=== PATIENT | female | born 1990 | race Caucasian/White ===

== ENCOUNTER 2020-12-21 16:14 | Emergency (ER) | payer OTHER ==
[~2020-12-21] VITALS: Ht 165.1 cm; Wt 77.1 kg
[~2020-12-21 16:14] MED LIST: MEDR150I; SULTRIDS PO
[2020-12-21] MEDS ORDERED: MIRALAX17 G3 PO (21:14)
[2020-12-21] MEDS ORDERED: Macrobid 100 M100 MG PO (21:14)
== END 2020-12-21 21:41 | disposition home or self-care (01) ==
LOC: ER 16:14
DX: K59.00 Constipation, unspecified (principal); R30.0 Dysuria; Z88.0 Allergy status to penicillin; Z88.5 Allergy status to narcotic agent
CPT/HCPCS: 74018; 99283-25; A9270

== ENCOUNTER 2022-05-14 01:36 | Emergency (ER) | payer OTHER ==
[~2022-05-14] VITALS: Ht 165.1 cm; Wt 77.1 kg
[~2022-05-14 01:36] MED LIST changes: +MIRALAX17 G3 PO; +Macrobid 100 M100 MG PO
[2022-05-14] MEDS ORDERED: NARCAN4 M1 (04:59)
== END 2022-05-14 05:17 | disposition home or self-care (01) ==
LOC: ER 01:36
DX: T40.411A Poisoning by fentanyl or fentanyl analogs, accidental (unintentional), initial encounter (principal); F17.210 Nicotine dependence, cigarettes, uncomplicated; Z88.0 Allergy status to penicillin; Z88.5 Allergy status to narcotic agent
CPT/HCPCS: 99284

== ENCOUNTER → 2022-07-28 | Outpatient (CLI) | payer OTHER ==
[~2022-07-28] MED LIST changes: +NARCAN4 M1
[2022-07-31 11:00] LABS: CHLAMYDIA BY NAA Negative (Negative); GONOCOCCUS BY NAA Negative (Negative); TRICH VAG BY NAA Negative (Negative)
== END | disposition home or self-care (01) ==
LOC: LAB SHORT 17:30 → LAB 17:30
PROVIDERS: Internal Medicine
DX: Z11.59 Encounter for screening for other viral diseases (principal)
CPT/HCPCS: 87491; 87591; 87661

== ENCOUNTER 2023-01-13 19:27 | Emergency (ER) | payer OTHER ==
[~2023-01-13] VITALS: Ht 165.1 cm; Wt 77.1 kg
[2023-01-13] MEDS ORDERED: CYCL10 PO (20:15)
== END 2023-01-13 20:25 | disposition home or self-care (01) ==
LOC: ER 19:27
DX: S16.1XXA Strain of muscle, fascia and tendon at neck level, initial encounter (principal); S20.212A Contusion of left front wall of thorax, initial encounter; V89.2XXA Person injured in unspecified motor-vehicle accident, traffic, initial encounter; F17.210 Nicotine dependence, cigarettes, uncomplicated; Z88.0 Allergy status to penicillin; Z88.5 Allergy status to narcotic agent
CPT/HCPCS: 99283

== ENCOUNTER 2023-05-12 11:21 | Day surgery (SDC) | payer OTHER ==
[~2023-05-12] VITALS: Ht 165.1 cm; Wt 71.2 kg
[~2023-05-12 11:21] MED LIST changes: +CYCL10 PO
--- NOTE | 2023-05-12 12:39 | NUR ---
05/12/23 1239 ALEJANDRO ORTIZ AT BEDSIDE.
--- NOTE | 2023-05-12 13:18 | NUR ---
05/12/23 1318 Sandra Mercedes ABDOMEN PREPPED WITH CHLORAPREP BY [email or web address]. 0.1ML OF EPI 1MG/ML ADDED TO 20ML ROPIVICAINE 0.5% TO CREATE A LOCAL SOLUTION OF ROPIVICAINE 0.5% WITH EPI 1:200,000.
--- NOTE | 2023-05-12 14:18 | NUR ---
05/12/23 1418 ALEJANDRO ORTIZ STATES THAT SHE HAS PAIN OF 4/10 IN ABD WHICH SHE STATES IS TOLERABLE. SHE DENIES NAUSEA.
--- NOTE | 2023-05-12 14:42 | NUR ---
05/12/[address] IN TO SPEAK WITH PT ABOUT SURGERY. PT C/O PAIN 03/21 IN ABD. ALSO STATES THAT SHE HAS A FAY.
[2023-05-12 15:17] VITALS: BP 106/64
== END 2023-05-12 15:35 | disposition home or self-care (01) ==
LOC: ORSCSDS 11:21
PROVIDERS: Obstetrics & Gynecology
PROC: 0UT7FZZ Resection of Bilateral Fallopian Tubes, Via Natural or Artificial Opening With Percutaneous Endoscopic Assistance (ICD-10-PCS; principal; 2023-05-12 12:30)
PROC: 0UH98HZ Insertion of Contraceptive Device into Uterus, Via Natural or Artificial Opening Endoscopic (ICD-10-PCS; principal; 2023-05-12 12:30)
PROC: 0UB44ZX Excision of Uterine Supporting Structure, Percutaneous Endoscopic Approach, Diagnostic (ICD-10-PCS; principal; 2023-05-12 12:30)
DX: Z30.2 Encounter for sterilization (principal); N92.1 Excessive and frequent menstruation with irregular cycle; N80.3C2 Endometriosis of the left uterosacral ligament, unspecified depth; F17.210 Nicotine dependence, cigarettes, uncomplicated; Z79.899 Other long term (current) drug therapy
CPT/HCPCS: 88302; 88305; A9270; J0171; J1100; J1885; J2250; J2405; J2704; J2710; J2795; J3010; J7298

== ENCOUNTER → 2023-10-02 | Outpatient (CLI) | payer OTHER ==
[2023-10-17 12:46] LABS: HPV GENOTYPE 16 Not Detected; HPV GENOTYPE 18 Not Detected; HPV HIGH RISK Not Detected; HPV SOURCE Cervical
== END ==
LOC: LAB SHORT 15:04 → LAB 15:04
PROVIDERS: Obstetrics & Gynecology
DX: Z01.419 Encounter for gynecological examination (general) (routine) without abnormal findings (principal)
CPT/HCPCS: 87624; G0123

== ENCOUNTER → 2024-05-24 | Outpatient (CLI) | payer OTHER ==
[~2024-05-24] MED LIST changes: +IBU800 MG PO; +ROXYBOND5 MG PO
[2024-05-25 07:58] LABS: Bacterial Vaginosis PCR Positive (NEGATIVE); Candida Group, PCR DETECTED (NOT DETECT); Candida glabrata-krusei, PCR DETECTED (NOT DETECT)
== END ==
LOC: LAB 14:00 → LAB SHORT 14:00
PROVIDERS: Obstetrics & Gynecology
DX: N89.8 Other specified noninflammatory disorders of vagina (principal)
CPT/HCPCS: 87481; 87661; 87801

== ENCOUNTER 2024-12-19 09:34 | Emergency (ER) | payer OTHER ==
[~2024-12-19] VITALS: Ht 165.1 cm; Wt 59.0 kg
[2024-12-19 09:42] VITALS: BP 128/93
[2024-12-19] MEDS ORDERED: Triamcinolone Inj Susp 40 MG / ML 1ML Vial IM ONE (09:50)
== END 2024-12-19 09:56 | disposition home or self-care (01) ==
LOC: ER 09:34
DX: L23.7 Allergic contact dermatitis due to plants, except food (principal); F17.290 Nicotine dependence, other tobacco product, uncomplicated; Z88.0 Allergy status to penicillin; Z79.899 Other long term (current) drug therapy
CPT/HCPCS: 96372; 99283-25; J3301